=== PATIENT | female | born 1985 | race Two or more races ===

== ENCOUNTER 2021-12-24 03:43 | Inpatient (IN) | payer SELFPAY ==
[~2021-12-24] VITALS: Ht 165.1 cm; Wt 66.0 kg
[2021-12-24] MEDS ORDERED: IV RINGERS,LACTATED 1000ML 1,000 ML IV SCH ×2 (04:00→04:45)
[2021-12-24 04:15] VITALS: BP 121/63
[2021-12-24 04:36] LABS: BACTERIA,URINE MODERATE /HPF (0-FEW); RBC,URINE OCC /HPF (0-2)
[2021-12-24] MEDS ORDERED: 0.9 % SODIUM CHLORIDE 10 ML DISP.SYRIN. IV PRN ×2 (04:45→07:30)
[2021-12-24] MEDS ORDERED: LIDOCAINE 1% PF 30 ML VIAL. INJ PRN (04:45)
[2021-12-24] MEDS ORDERED: TERBUTALINE 1 MG/ML VIAL. SQ PRN (04:45)
[2021-12-24] MEDS ORDERED: fentaNYL PF VIAL 100 MCG/2 ML VIAL IVP PRN ×2 (04:45)
[2021-12-24] MEDS ORDERED: ONDANSETRON PF 4 MG/2 ML VIAL. IVP PRN (04:45)
[2021-12-24] MEDS ORDERED: OXYTOCIN 30 UNIT/500 ML PREMIX 500 ML IV PRN ×3 (04:45→07:30)
[2021-12-24 05:07] LABS: BASO % 0 % (0-3); EOS % 0 % (0-3); HEMATOCRIT 39.3 % (36.0-47.0); HEMOGLOBIN 13.4 g/dL (12.0-15.5); LYMPH % 10 % (24-48); MEAN CORPUSCULAR HEMOGLOBIN 31 pg (25-35); MEAN CORPUSCULAR HGB CONC 34 g/dL (31-37); MEAN CORPUSCULAR VOLUME 90 fL (79-100); MONO # 0.5 x10^3/uL (0.0-1.1); MONO % 4 % (0-9); NEUT # 9.2 x10^3/uL (1.8-7.7); NEUT % 86 % (31-73); PLATELET COUNT 157 x10^3/uL (140-400); RED BLOOD COUNT 4.36 x10^6/uL (3.50-5.40); RED CELL DISTRIBUTION WIDTH 13.3 % (11.5-14.5); WHITE BLOOD COUNT 10.7 x10^3/uL (4.0-11.0)
[2021-12-24] MEDS ORDERED: MAGNESIUM HYDROXIDE 2,400 MG/30 ML ORAL.SUSP. PO PRN (07:30)
[2021-12-24] MEDS ORDERED: TDaP (BOOSTRIX) per PROTOCOL. MC PRN (07:30)
[2021-12-24] MEDS ORDERED: PHENYLEPH/MINERAL OIL/PETROLAT RECTAL OINTMENT TUBE. RC PRN (07:30)
[2021-12-24] MEDS ORDERED: SIMETHICONE 80 MG TAB.CHEW PO PRN (07:30)
[2021-12-24] MEDS ORDERED: DOCUSATE SODIUM 100 MG CAPSULE. PO PRN (07:30)
[2021-12-24] MEDS ORDERED: HYDROCORTISONE 1% TOPICAL OINTMENT 30GM TUBE. TP PRN (07:30)
[2021-12-24] MEDS ORDERED: oxyCODONE/APAP 5/325 1 TAB TABLET PO PRN (07:30)
[2021-12-24] MEDS ORDERED: IBUPROFEN 200 MG TABLET. PO PRN (07:30)
[2021-12-24] MEDS ORDERED: MAG HYDROX/ALUMINUM HYD/SIMETH 30 ML ORAL.SUSP PO PRN (07:30)
[2021-12-24] MEDS ORDERED: ACETAMINOPHEN 325 MG TABLET. PO PRN (07:30)
[2021-12-24] MEDS ORDERED: diphenhydrAMINE HCL 25 MG CAPSULE PO PRN (07:30)
[2021-12-24] MEDS ORDERED: MMR per PROTOCOL. MC PRN (07:30)
[2021-12-24] MEDS ORDERED: BENZOCAINE 20% TOPICAL AEROSOL SPRAY 57GM CAN. TP PRN (07:30)
[2021-12-24] MEDS: IBUPROFEN 400 MG TABLET. PO PRN ×2 (07:31→16:57)
--- NOTE | 2021-12-24 07:53 | PDOC1 ---
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 She denies leaking of fluid or vaginal bleeding. Patient reports uncomplicated care at [facility] with Dr. Rosas. Patient reports GBS negative results. Patient admits to pain with regular contractions every 3-4 minutes. Past Medical History: Cardiovascular: No pertinent hx Pulmonary: No pertinent hx GI: No pertinent hx Heme/Onc: No pertinent hx Hepatobiliary: No pertinent hx Psych: No pertinent hx Rheumatologic: No pertinent hx Infectious disease: No pertinent hx ENT: No pertinent hx Renal/: No pertinent hx Endocrine: No pertinent hx Dermatology: No pertinent hx Grav: 2 Para: 1 (vaginal delivery 08/26/2020) Social History: Smoke: No ALCOHOL: none Drugs: None Medications: Meds: Current Medications Medications (Trade) Dose Ordered Sig/Rebeca Route PRN Reason Start Time Stop Time Status Last Admin Dose Admin Ringer's Solution 1,000 ml @ 125 mls/hr Q8H IV 12/24/21 04:00 12/24/21 04:45 Lidocaine HCl (Xylocaine 1% Pf 30ml Vial) 30 ml 1X PRN PRN INJ SEE COMMENTS 12/24/21 04:45 12/26/21 04:44 12/24/21 07:29 Oxytocin 500 ml @ 0 mls/hr CONT PRN IV SEE I/O RECORD 12/24/21 04:45 12/24/21 05:50 Ibuprofen (Motrin) 800 mg PRN Q6HRS PRN PO PAIN 12/24/21 04:45 12/24/21 07:31 Allergies: Coded Allergies: No Known Drug Allergies (Unverified , 12/24/21) Physical Exam: Vital Signs: Nurse reports cervical exam is 4 cm with bulging bag of water PE: GENERAL: No apparent distress. Alert and oriented. HEENT: Head normocephalic, atraumatic. NECK: Supple LUNGS: Clear to auscultation. HEART: RRR, S1, S2 present, pulses intact ABDOMEN: Soft, positive bowel sounds. EXTREMITIES: No cyanosis or edema. NEUROLOGIC: Normal speech, normal tone PSYCHIATRIC: Normal affect, normal mood. SKIN: No ulceration. Labs: Laboratory Tests Test 12/24/21 03:55 12/24/21 04:40 Urine Collection Type Unknown Urine Color (Auto) Yellow Urine Turbidity Clear Urine pH (Auto) 6.0 (<5.0-8.0) Urine Specific [place] 1.020 (1.000-1.030) Urine Protein (Auto) Negative mg/dL (Negative) Urine Glucose (Auto)(UA) Negative mg/dL (Negative) Urine Ketones (Auto) 20 mg/dL (Negative) Urine Blood (Auto) Negative (Negative) Urine Nitrite Negative (Negative) Urine Bilirubin (Auto) Negative (Negative) Urine Urobilinogen (Auto) Normal mg/dL (Normal) Urine Leukocyte Esterase (Auto) Small (Negative) Urine RBC Occ /HPF (0-2) Urine WBC 5-10 /HPF (0-4) Urine Squamous Epithelial Cells Many /LPF Urine Bacteria Moderate /HPF (0-FEW) Urine Mucus Mod /LPF White Blood Count 10.7 x10^3/uL (4.0-11.0) Red Blood Count 4.36 x10^6/uL (3.50-5.40) Hemoglobin 13.4 g/dL (12.0-15.5) Hematocrit 39.3 % (36.0-47.0) Mean Corpuscular Volume 90 fL (79-100) Mean Corpuscular Hemoglobin 31 pg (25-35) Mean Corpuscular Hemoglobin Concent 34 g/dL (31-37) Red Cell Distribution Width 13.3 % (11.5-14.5) Platelet Count 157 x10^3/uL (140-400) Neutrophils (%) (Auto) 86 % (31-73) H Lymphocytes (%) (Auto) 10 % (24-48) L Monocytes (%) (Auto) 4 % (0-9) Eosinophils (%) (Auto) 0 % (0-3) Basophils (%) (Auto) 0 % (0-3) Neutrophils # (Auto) 9.2 x10^3/uL (1.8-7.7) H Lymphocytes # (Auto) 1.0 x10^3/uL (1.0-4.8) Monocytes # (Auto) 0.5 x10^3/uL (0.0-1.1) Eosinophils # (Auto) 0.0 x10^3/uL (0.0-0.7) Basophils # (Auto) 0.0 x10^3/uL (0.0-0.2) Laboratory Tests 12/24/21 04:40 Laboratory Tests 12/24/21 04:40 Assessment & Plan: 36 y/o 1. IUP at 37 weeks. 2. Active labor: Recommend admission to L&D and prepare for spontaneous vaginal delivery. 3. AMA 4. GBS negative. HERNÁN CARLOS MD Dec 24, 2021 07:53
--- NOTE | 2021-12-24 08:08 | PDOC4 ---
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 The patient was unable to crown the head because of position. The perineum was injected with 7 ml of 1% Lidocaine. The midline episiotomy was cut and the head crowned with the next contraction. The perineum was supported. The head delivered occiput posterior with a tight nuchal cord unable to be reduced. The cord was clamped and cut at the perineum. The shoulder delivered spontaneously and the fetus delivered with upward traction. The baby was handed to nurse in stable condition. The cervix was inspected and intact. The episiotomy was repaired in the standard fashion. The vertical mattress sutures were placed. Then, the episiotomy was closed at the vaginal apex and then dropped to perineum and the crown stitch was placed with continued suturing to apex. Then the skin was closed to the perineum. The suturing repaired anatomy. The rectal exam was performed with no defects. The uterus was firm. All sponges were removed. The counts were correct on two confirmed counts. Signs of Intrauterine Infectio: None Shoulder Dystocia: No DIAGNOSIS Term labor Problems: (1) 37 weeks gestation of (2) Vaginal delivery HERNÁN CARLOS MD Dec 24, 2021 08:08
[2021-12-24] MEDS ORDERED: MULTIVITAMIN with MINERAL TABLET. PO SCH (09:00)
[2021-12-24] MEDS ORDERED: LEVO100C3 PO (09:48)
[2021-12-24] MEDS ORDERED: PNV1TABL78 PO (09:49)
[2021-12-24 10:15] VITALS: BP 89/48
[2021-12-24 13:00] VITALS: BP 100/51
[2021-12-24 17:29] VITALS: BP 97/53
[2021-12-24 19:30] VITALS: BP 100/65
[2021-12-24 23:30] VITALS: BP 105/57
[2021-12-25 03:30] VITALS: BP 100/60
[2021-12-25] MEDS ORDERED: LEVOTHYROXINE 100 MCG TABLET PO SCH (06:00)
[2021-12-25] MEDS ORDERED: FERROUS SULFATE 325 MG TABLET. PO SCH (08:00)
[2021-12-25 08:30] VITALS: BP 104/68
[2021-12-25 08:50] LABS: BASO % 0 % (0-3); EOS % 1 % (0-3); HEMATOCRIT 33.6 % (36.0-47.0); HEMOGLOBIN 11.4 g/dL (12.0-15.5); LYMPH # 1.1 x10^3/uL (1.0-4.8); LYMPH % 17 % (24-48); MEAN CORPUSCULAR HEMOGLOBIN 31 pg (25-35); MEAN CORPUSCULAR HGB CONC 34 g/dL (31-37); MEAN CORPUSCULAR VOLUME 91 fL (79-100); MONO # 0.3 x10^3/uL (0.0-1.1); MONO % 4 % (0-9); NEUT # 5.2 x10^3/uL (1.8-7.7); NEUT % 78 % (31-73); PLATELET COUNT 127 x10^3/uL (140-400); RED CELL DISTRIBUTION WIDTH 13.2 % (11.5-14.5); WHITE BLOOD COUNT 6.7 x10^3/uL (4.0-11.0)
--- NOTE | 2021-12-25 10:35 | PDOC ---
BI[employer] CONSULTANT PROGRESS NOTE Date of Service: DATE: 12/25/21 TIME: 10:35 Subjective: Pt with good pain control. Brittanie PO. Voiding. Minimal lochia. Objective: Vital Signs: Vital Signs Date Time Temp Pulse Resp B/P (MAP) Pulse Ox O2 Delivery O2 Flow Rate FiO2 12/24/21 09:20 Room Air 12/24/21 10:15 98.1 63 20 89/48 (62) 98.1 12/24/21 19:30 98 Vital Signs Date Time Temp Pulse Resp B/P (MAP) Pulse Ox O2 Delivery O2 Flow Rate FiO2 12/25/21 08:30 98.2 69 20 104/68 (80) 98.2 12/25/21 03:30 99 Room Air Labs: Laboratory Tests Test 12/25/21 07:53 White Blood Count 6.7 x10^3/uL (4.0-11.0) Red Blood Count 3.70 x10^6/uL (3.50-5.40) Hemoglobin 11.4 g/dL (12.0-15.5) L Hematocrit 33.6 % (36.0-47.0) L Mean Corpuscular Volume 91 fL (79-100) Mean Corpuscular Hemoglobin 31 pg (25-35) Mean Corpuscular Hemoglobin Concent 34 g/dL (31-37) Red Cell Distribution Width 13.2 % (11.5-14.5) Platelet Count 127 x10^3/uL (140-400) L Neutrophils (%) (Auto) 78 % (31-73) H Lymphocytes (%) (Auto) 17 % (24-48) L Monocytes (%) (Auto) 4 % (0-9) Eosinophils (%) (Auto) 1 % (0-3) Basophils (%) (Auto) 0 % (0-3) Neutrophils # (Auto) 5.2 x10^3/uL (1.8-7.7) Lymphocytes # (Auto) 1.1 x10^3/uL (1.0-4.8) Monocytes # (Auto) 0.3 x10^3/uL (0.0-1.1) Eosinophils # (Auto) 0.0 x10^3/uL (0.0-0.7) Basophils # (Auto) 0.0 x10^3/uL (0.0-0.2) Laboratory Tests 12/25/21 07:53 Laboratory Tests 12/25/21 07:53 Physical Exam: GENERAL: No apparent distress. Alert and oriented. HEENT: Head normocephalic, atraumatic. NECK: Supple LUNGS: Clear to auscultation. HEART: RRR, S1, S2 present, pulses intact ABDOMEN: Soft, positive bowel sounds. EXTREMITIES: No cyanosis or edema. NEUROLOGIC: Normal speech, normal tone PSYCHIATRIC: Normal affect, normal mood. SKIN: No ulceration. FFNT below umb No C/C/E Assessment & Plan: A/P 36y PPD #1 s/p 1.) PP doing well 2.) AMA 3.) Hypothyroidism - on Levothyroxine 100 mcg 4.) Adrianna NI 5.) TDAP given 11/17/21 6.) Flu vaccine given 07/24/21 7.) Hgb 13.4 -> 11.4 8.) D/c home ISABELLA HOFF MD Dec 25, 2021 10:35
[2021-12-25] MEDS ORDERED: IBUP-1060 PO (10:48)
[2021-12-25] MEDS ORDERED: DOCU-109 PO (10:48)
--- NOTE | 2021-12-25 11:40 | NUR ---
Dr. Rosas was called concerning depression screen that pt. scored a 10, early childhood special educator phone used if there was problems with translation and states is anxious related to worrying about 18 month old at home and wanting to be discharged to go home and not related to PP depression. Social service was not contacted. Pt. was given information about PP depression. No new orders at this time.
--- NOTE | 2021-12-25 11:45 | NUR ---
dismissal instructions, prescriptions and baby dismissal instructions given. signed
[2021-12-25 14:30] VITALS: BP 111/64
--- NOTE | 2021-12-25 14:50 | NUR ---
Out to awaiting car accompanied by RN and
--- NOTE | 2022-01-01 11:40 | PDOC3 ---
Discharge Summary Visit Information Date of Admission: Dec 24, 2021 Date of Discharge: Dec 25, 2021 Admitting Diagnosis: Labor, 37 weeks Admitting Diagnosis Comment: Active labor Final Diagnosis Spontaneous vaginal delivery Brief Hospital Course Allergies Allergies Coded Allergies Type Severity Reaction Last Updated Verified No Known Drug Allergies 12/24/21 No Vital Signs Normal range Lab Results Discharge hemoglobin 11.4 Brief Hospital Course Ms. Diego is a 36 old female who presented with active labor and delivered spontaneous vaginal delivery. Hospital course uncomplicated. Assessment Assessment Normal physical exam Discharge Information Condition at Discharge: Improved, Stable Follow Up: Weeks Disposition/Orders: D/C to Home Scheduled Levothyroxine Sodium (Levothyroxine) 100 Mcg Capsule, 100 MCG PO QAM for Hypothyroidism, (Reported) Entered as Reported by: ALBINO BA RN on 12/24/21947 Last Taken: 100 mcg on 12/22/21 Last Action: New Order on 12/24/21947 by ALBINO BA RN Pnv No.122/Iron/Folic Acid ( Multi Tablet) 1 Each Tablet, 1 TAB PO DAILY for for 30 Days, #30 Ref 0 (Reported) Entered as Reported by: ALBINO BA RN on 12/24/21948 Last Taken: Unknown Dose on 12/23/21899 Last Action: New Order on 12/24/21948 by ALBINO BA RN Scheduled PRN Docusate Sodium (Colace) 100 Mg Capsule, 100 MG PO PRN BID PRN for CONSTIPATION, #30 Ref 2 Prescribed by: ISABELLA HOFF MD on 12/25/211047 Ibuprofen (Ibuprofen) 800 Mg Tablet, 800 MG PO PRN Q8HRS PRN for INFLAMMATION, #30 Ref 2 Prescribed by: ISABELLA HOFF MD on 12/25/21 1048 Patient Instructions Patient Instructions Pelvic rest for 6 weeks. Justicifation of Admission Dx: Justifications for Admission: Justification of Admission Dx: Comment: (Active labor) HERNÁN CARLOS MD Jan 01, 2022 11:40
== END 2021-12-25 14:55 | disposition home or self-care (01) | DRG 807 ==
LOC: 3 SO LND 03:43 → OBSVTOIN 06:43 → 3 SO LND 10:06
PROVIDERS: ADMIT Obstetrics & Gynecology; ATTEND Obstetrics & Gynecology
PROC: 10E0XZZ Delivery of Products of Conception, External Approach (ICD-10-PCS; principal; 2021-12-24)
PROC: 0W8NXZZ Division of Female Perineum, External Approach (ICD-10-PCS; 2021-12-24)
DX: O69.1XX0 Labor and delivery complicated by cord around neck, with compression, not applicable or unspecified (principal); Z37.0 Single live birth; Z3A.37 37 weeks gestation of pregnancy; Z20.822 Contact with and (suspected) exposure to COVID-19; O99.285 Endocrine, nutritional and metabolic diseases complicating the puerperium; E03.9 Hypothyroidism, unspecified
CPT/HCPCS: 36415; 81001; 85025; 86850; 86900; 86901; 87086; 87426; G0378; G0379; J2590; J3490; J7120; U0003